=== PATIENT | female | born 1960 | race Two or more races ===

== ENCOUNTER 2022-11-20 16:54 | Emergency (ER) | payer MEDICAID, OTHER ==
[~2022-11-20] VITALS: Ht 152.4 cm; Wt 104.3 kg
[2022-11-20] MEDS ORDERED: LOSA25TA3 PO (17:12)
[2022-11-20] MEDS ORDERED: LEVO50TA8 PO (17:12)
[2022-11-20] MEDS ORDERED: SIMV-46 PO (17:12)
[2022-11-20] MEDS ORDERED: METF-440 PO (17:12)
[2022-11-20] MEDS ORDERED: GUAI-671 PO (17:33)
--- NOTE | 2022-11-20 17:47 | NUR ---
PT IS IN ROOM #2B. DR JURADO EVALUATED THE PT.
--- NOTE | 2022-11-20 18:10 | NUR ---
PT WAS D/C'd TO HOME. D/C INSTRUCTIONS GIVEN TO THE PT BY DR JURADO.
[2022-11-20 18:12] VITALS: BP 143/88
== END 2022-11-20 18:12 | disposition home or self-care (01) ==
LOC: ER 16:56
DX: J20.9 Acute bronchitis, unspecified (principal); E78.5 Hyperlipidemia, unspecified; E11.9 Type 2 diabetes mellitus without complications; Z79.899 Other long term (current) drug therapy
CPT/HCPCS: A4663